=== PATIENT | female | born 1980 | race Caucasian/White ===

== ENCOUNTER → 2016-07-14 | Outpatient (CLI) | payer MEDICAID | END | disposition disaster alternative care site (69) | LOC: GRAD 17:00 | DX: R10.12 Left upper quadrant pain (principal); R10.32 Left lower quadrant pain; R11.10 Vomiting, unspecified; N75.0 Cyst of Bartholin's gland; Z90.49 Acquired absence of other specified parts of digestive tract | CPT/HCPCS: Q9967 ==